=== PATIENT | female | born 1945 | race African-American/Black ===

== ENCOUNTER 2016-09-17 23:19 | Inpatient (IN) | payer MEDICARE, OTHER ==
--- NOTE | ~2016-09-17 | CN ---
Consultation Report [facility] [address] [place]. [address] NAME: MELANIE BOWLING : 43 STATUS : ADM IN [facility]#: [id number] AGE: 71 ADM/REG DATE : 09/18/16 MR#: [id number] REPORT SERV DATE: 09/19/16 DICTATED BY: ERIBERTO DIALLO JR. DATE: 09/19/16 REPORT STATUS : Draft TRANSCRIBED BY: MODKelvin DATE: 09/19/16 CONSULT DATE OF CONSULTATION: 09/19/2016 INDICATIONS FOR REFERRAL: Abnormal telemetry, shortness of breath, and hypoxic respiratory failure. HISTORY OF PRESENT ILLNESS: Melanie is a 71-year-old female, who is followed by Dr. Rivas. She has not seen him over a year per her report. She has distant coronary stenting. She felt poorly beginning at the beginning of August and has had progressive shortness of breath since that time. She presented yesterday with hypoxic respiratory failure with an oxygen saturation of 58 and even low-grade temperatures of 100.9. She states increasing wheezing and marked shortness of breath that have been progressive over a 4-week time. She denies precordial chest pain. On telemetry, she had aberrant irregular heart rhythm, more concerning for paroxysmal atrial fibrillation than ventricular tachycardia. PAST MEDICAL HISTORY: Includes end-stage renal disease on dialysis, coronary artery disease status post distant stenting, insulin-requiring diabetes, hypertension, mixed hyperlipidemia, prior TIA, osteoarthritis with spinal stenosis, morbid obesity, and a history of chronic diastolic heart failure. ALLERGIES: PLAVIX, ALBUTEROL IS NOT TOLERATED. CURRENT MEDICATIONS: Please see the MAR which was reviewed. SOCIAL HISTORY: The patient does not smoke, drink, or use recreational drugs. FAMILY HISTORY: Negative for premature vascular events. REVIEW OF SYSTEMS: Malaise, fatigue, low-grade subjective fevers. She denies bleeding diathesis. She denies changes in bowel or bladder habits. The remainder as in HPI or negative. PHYSICAL EXAMINATION: VITAL SIGNS: Blood pressure is 173/74, heart rate 84, and respirations 16 to 18. GENERAL: A morbidly obese female who is in no acute distress. HEENT: Anicteric, no scleral injection, no oral lesions. NECK: No JVD, supple, no bruits. LUNGS: Scattered rhonchi and wheezes. CARDIOVASCULAR: Regular rate and rhythm with distant heart sounds. ABDOMEN: Soft, nontender. Normoactive bowel sounds, no hepatosplenomegaly. EXTREMITIES: No clubbing, cyanosis or edema. Consultation Report [facility] [address] [place] [address] NAME: MELANIE BOWLING : 43 STATUS : ADM IN PAT#: [id number] AGE: 71 ADM/REG DATE : 09/18/16 MR#: [id number] REPORT SERV DATE: 09/19/16 DICTATED BY: ERIBERTO DIALLO JR. DATE: 09/19/16 REPORT STATUS : Draft TRANSCRIBED BY: LARS DATE: 09/19/16 SKIN: No visible rashes. NEURO/PSY: Normal affect, alert and oriented x 3. EKG: EKG reveals sinus rhythm with a heart rate of 69. No significant ST change. LABORATORY DATA: Troponin 0.04. Creatinine 3.97, potassium is 4. Hematocrit 33, white count 7.8. MEDICAL DECISION MAKIN. Abnormal heart rhythm. This appears more consistent with atrial fibrillation with aberrancy than ventricular tachycardia. We will continue telemetry observation and check echocardiography. 2. Coronary artery disease. The patient is stable without active angina. There is no evidence of ACS. 3. Chronic diastolic heart failure. This could be contributing to her shortness of breath and hypoxia. We will continue to titrate medications for blood pressure control. If systolic function remains preserved, consideration towards changing metoprolol to long- acting diltiazem or verapamil. We will continue to follow along with you. Further recommendations to follow. RADHAMES/LARS Eriberto Diallo Jr., M.D. / [id number] CC: MD Jocelynn Whipple M.D. Mandeep Grewal, M.D.
--- NOTE | ~2016-09-17 | HP ---
History And Physical [place] [address] [place]. [address] NAME: RANDALL DAWSON : 43 STATUS : ADM IN [facility]#: [id number] AGE: 71 ADM/REG DATE : 09/18/16 MR#: [id number] REPORT SERV DATE: 09/18/16 DICTATED BY: DATE: REPORT STATUS : Draft TRANSCRIBED BY: MODL DATE: 09/18/16 DATE OF ADMISSION: 09/18/2016 CHIEF COMPLAINT: Shortness of breath. HISTORY OF PRESENT ILLNESS: Ms Dawson is a 71-year-old, white female, who dialyzes at [address] [place] [address] Wednesday, Wednesday, and Wednesday. She states that she has been getting progressively more short of breath over the last two days. She states that prior to presentation, denied any fevers or chills. States that yesterday evening, she tried to take an albuterol, it made her jittery, more short of breath, therefore presented to the emergency department. In the emergency department, she was found to have a temperature up to 100.9, white blood cell count normal, chest x-ray is read as negative, she may have some edema on the chest x-ray. ABG; she was found to have significant hypoxia with pO2 of 58, and given all this, she was admitted for further evaluation and treatment. PAST MEDICAL HISTORY: End-stage renal disease, coronary artery disease, diabetes, showed normal ejection fraction in 11/2015, hypertension, hyperlipidemia, TIA, osteoarthritis, spinal stenosis, morbid obesity, anemia, history of diastolic heart failure. SOCIAL HISTORY: She is , lives with her . No tobacco, alcohol, or illicit drug use. FAMILY MEDICAL HISTORY: Positive for sister and a nephew with end-stage renal disease. ALLERGIES: PLAVIX. ALBUTEROL IS LISTED BUT IT IS NOT AN ALLERGY; SHE DOES HAVE SOME SIDE EFFECT OF JITTERINESS. MEDICATIONS: Acetaminophen, albuterol, atorvastatin, furosemide, hydralazine, Levemir, metoprolol, and multivitamins. REVIEW OF SYSTEMS: 12-point review of systems was obtained, negative with the exception of that in HPI. PHYSICAL EXAMINATION: VITAL SIGNS: Temp 97.7, blood pressure 177/78, pulse 79, respiratory rate 18, O2 saturation 99% on 2 L. GENERAL: This is a pleasant, cooperative, overweight black female. She is awake, alert, and oriented, in no acute distress. Answers questions appropriately. HEENT: Normocephalic and atraumatic. Conjunctivae clear. Sclerae anicteric. Pupils are equal and round. Oral mucosa is moist. LUNGS: Respirations are even and unlabored breath sounds. Clear to auscultation. NECK: Neck veins flat. No lymphadenopathy. CARDIOVASCULAR: Heart rate is regular. She does have a systolic murmur 3/6. No rub or gallop. ABDOMEN: Obese, soft, and nontender. Bowel sounds active. No masses. No hepatosplenomegaly. No bruits. No CVA tenderness. History And Physical [address] [place]. [address] NAME: RANDALL DAWSON : 43 STATUS : ADM IN [facility]#: [id number] AGE: 71 ADM/REG DATE : 09/18/16 MR#: [id number] REPORT SERV DATE: 09/18/16 DICTATED BY: DATE: REPORT STATUS : Draft TRANSCRIBED BY: LARS DATE: 09/18/16 BACK: Within normal limits. EXTREMITIES: With 1+ edema. No cyanosis or clubbing. SKIN: Warm, dry, and intact. No unusual rashes or skin lesions. NEUROLOGIC: No focal deficits. Mood and affect, pleasant and appropriate. PERTINENT LABS AND X-RAYS: Chest x-ray is read as negative, however, and she has some edema versus some perihilar infiltrates on my read. Sodium 145, potassium 3.8, chloride 106, CO2 of 27, BUN of 24, creatinine of 3.5, calcium 8.5, albumin of 3.1. LFTs are unremarkable. Flu screen is negative. BNP of 462. Lactate was normal 1.3. WBCs 9.4, H and H 10 and 34, and platelets 227,000. IMPRESSION: 1. Shortness of breath and hypoxia. 2. Acute bronchitis versus may be possible pneumonia. 3. End-stage renal disease. 4. Hypertension. 5. Diabetes. 6. Fever. PLAN: Admit. Nebulizer treatments, antibiotics. Dialysis today, we will challenge her weight just prove that she has had some edema there. Usual medicines as appropriate. Sliding scale insulin as his blood sugars elevated. She has one dose of Solu-Medrol in the emergency department. Further orders and recommendations pending clinical course. JEVON/LARS MALA Knox / [id number] CC: MD Jocelynn Whipple M.D.
--- NOTE | ~2016-09-17 | DS ---
Discharge Summary [facility] [address] [place]. [address] NAME: RANDALL BOWLING : 43 STATUS : DIS IN PAT#: [id number] AGE: 71 ADM/REG DATE : 09/18/16 MR#: [id number] REPORT SERV DATE: 10/03/16 DICTATED BY: JULIANNA ROTHMAN JR DATE: 10/02/16 REPORT STATUS : Draft TRANSCRIBED BY: LARS DATE: 10/02/16 Data Collection from hospitalization DISCHARGE DIAGNOSES: 1. Dyspnea. 2. Fluid overload secondary to chronic kidney disease/end-stage renal disease. 3. Hypertension-uncontrolled. 4. Bronchitis. 5. Insulin-dependent diabetes mellitus. 6. End-stage renal disease. 7. Hyperlipidemia. 8. Morbid obesity. 9. Osteoarthritis. 10.Anemia. 11.History of diastolic heart failure. CONSULTATION: Jose Alberto Diallo M.D. PROCEDURES PERFORMED: None. DISCHARGE MEDICATIONS: Tylenol 650 mg every morning as instructed, Exforge one tablet daily, Lipitor 40 mg at bedtime, Levemir FlexPen 40 units subcutaneously every morning and 35 units subcutaneously at bedtime, Lopressor 50 mg twice a day, multivitamins with minerals one tablet every morning, Augmentin as directed. She was instructed not to continue Lasix, NovoLog sliding scale, albuterol, hydralazine, or [id number] RBC vitamin. CONDITION AT DISCHARGE: Stable. DISPOSITION: The patient was discharged home on a low-cholesterol, 1800-calorie diabetic diet with no concentrated carbohydrates and activities as instructed. She would follow up with Dr. Markie Rivas as scheduled. She would follow up at [facility], 09/28/2016. HOSPITAL COURSE: This is a 71-year-old female, who dialyzes at [facility] on Mondays, Wednesdays, and Fridays. The patient said that she had become more short of breath over the last two days prior to admission. She said that prior to presentation, she denied any fevers or chills. She said that on the evening prior to this admission, she tried to take an albuterol, but it made her jittery and more short of breath and she therefore presented to the emergency department. In the emergency department, she was found to have a temperature of 100.9. White blood cell count was normal. Chest x-ray was read as negative. It was felt that she may have some edema on chest x-ray. She was found to have significant hypoxia with pO2 of 58. She was admitted to the hospital for further evaluation and treatment. Upon admission, nebulizer treatments and antibiotics were going to be provided. Dialysis therapy was going to be performed. medications were continued. Sliding scale insulin was started. The following day, she was seen by Dr. Noriega regarding abnormal telemetry, shortness of breath, and hypoxic respiratory failure. On telemetry, she had aberrant irregular heart rhythm, more concerning for paroxysmal atrial Discharge Summary [place] [id number] [facility] [address] [facility] [address] NAME: RANDALL BOWLING : 43 STATUS : DIS IN PAT#: [id number] AGE: 71 ADM/REG DATE : 09/18/16 MR#: [id number] REPORT SERV DATE: 10/03/16 DICTATED BY: JULIANNA ROTHMAN JR DATE: 10/02/16 REPORT STATUS : Draft TRANSCRIBED BY: LARS DATE: 10/02/16 fibrillation than ventricular tachycardia. Her abnormal heart rhythm appeared more consistent with atrial fibrillation with aberrancies in ventricular tachycardia. We would continue telemetry observation and check echocardiography. There was no evidence of acute coronary syndrome. It was felt that chronic diastolic heart failure could be contributing to her shortness of breath and hypoxia. We would continue to titrate medications for blood pressure control. If systolic function remains preserved, consideration towards changing metoprolol to long-acting diltiazem or verapamil would be performed. Echocardiogram was performed. On the , she had some shortness of breath earlier that morning. Ejection fraction was 55%. Chest x-ray was going to be rechecked. She still had shortness of breath with audible wheezing. She had no chest pain. There was a report of paroxysmal atrial fibrillation earlier. On 09/21/2016, her blood pressure was not controlled. She was felt to have volume overload. She had dull breath sounds. She remained dyspneic. She does have mild aortic stenosis and mild left ventricular diastolic dysfunction. Next day, she said she felt less short of breath. She was coughing up phlegm. She had no chest pain. Creatinine level was 6.26. She had not had a myocardial infarction by enzymes. There was no evidence of atrial fibrillation by any EKGs or telemetry at this time. We would consider adding back beta cristina for blood pressure control. Levaquin was continued. On 09/23/2016, hemodialysis therapy was performed. Blood glucose levels were stable. Valsartan was increased. Levemir was stopped. Diovan had been increased. Her cough was improving. Discharge planning was performed. Blood pressure control improved. On 09/25/2016, discharge instructions were given. Due to her improved and stable condition, she was discharged home with the above-stated instructions. Information collected by: Yasmin Howe I submit the above information as my discharge summary. TG/MODL Julianna Rothman Jr, M.D. / [id number] CC: MD Jocelynn Whipple M.D. Van Stephen Monroe Jr., M.D.
[~2016-09-17 23:19] MED LIST: ACET500CAP PO; AMOXIL875 PO; APRES50 PO; ASAB PO; DYAZIDE1 CAP PO; GLUCPH PO; HYGROTON 25 MG25 MG OR; L40 PO; L80 PO; LEVEMIR SC; LIPITOR20 PO; LISINOPRIL40 MG PO; LOP50 PO; MAX25 PO; MVI PO; NORV10 PO; NOVOLOG SC; NOVOLOGMIX SC; PROBIOTIC; SPIRO25 PO; TICLID 250 MG250 MG OR; VITAMIN D31000 UNIT PO
[2016-09-18 01:23] LABS: BE (BASE EXCESS) 2.2 MEQ/L (0 +/- 2.5); CARBOXYHEMOGLOBIN 1.4 % (0-3); HCO3 (ACTUAL BICARBONATE) 25.2 MEQ/L (23-27); HEMOBLOGIN CONTENT 11.4 G/DL (12-16); INSTRUMENT SERIAL # 8087; METHEMOGLOBIN 0.1 % (0-3); O2 CONTENT 14.1 VOL% (18-24); OPERATOR ID 17589; PCO2 (CO2 TENSION) 33 MMHG (35-45); PO2 (O2 TENSION) 58 MMHG (79-93); SAMPLE Arterial
[2016-09-18 01:24] LABS: ALLENS TEST Pos
[2016-09-18 03:24] LABS: BASOPHILS 0.1 %; BASOPHILS ABSOLUTE 0.01 10/3/uL (0.0-0.16); EOSINOPHILS ABSOLUTE 0.09 10/3/uL (0.0-0.53); ER CBC TAT 0 Hrs 07 Mins; IMMATURE GRANULOCYTES 0.2 %; IMMATURE GRANULOCYTES ABSOLUTE 0.02 10/3/uL (0.0-0.11); LYMPHOCYTES 10.6 %; MEAN CORPUS HGB CONC 31.7 g/dL (32.0-36.0); MEAN CORPUSCULAR HEMOGLOB 30.2 pg (26.0-34.0); MEAN PLATELET VOLUME 10.3 fL (9.2-13.0); MONOCYTES 3.8 %; MONOCYTES ABSOLUTE 0.36 10/3/uL (0.21-1.20); NEUTROPHILS 84.3 %; NEUTROPHILS ABSOLUTE 7.96 10/3/uL (2.02-8.40); PLATELET COUNT 227 10/3/uL (150-400); RBC DISTRIBUTION WIDTH 17.8 % (12.0-16.0); WHITE BLOOD CELLS 9.4 10/3/uL (4.5-10.5)
[2016-09-18 03:29] LABS: HEMATOCRIT 34.1 % (36.0-48.0); HEMOGLOBIN 10.8 g/dL (12.0-16.0); MANUAL DIFF NO %; MEAN CORPUSCULAR VOLUME 95.3 fL (80-100); RED CELL COUNT 3.58 10/6/uL (4.0-5.6)
[2016-09-18 03:50] LABS: LACTATE 1.3 MMOL/L (0.3-2.4)
[2016-09-18 04:46] LABS: INFLUENZA A SCREEN NEGATIVE (NEGATIVE); INFLUENZA B SCREEN NEGATIVE (NEGATIVE)
[2016-09-18 04:57] LABS: A/G RATIO 0.7 (0.7-1.9); ALBUMIN 3.1 G/DL (3.5-5.0); ALKALINE PHOSPHATASE 108 U/L (45-117); BUN (BLOOD UREA NITROGEN) 24 MG/DL (6-23); CALCIUM, SERUM 8.5 MG/DL (8.5-10.4); CHLORIDE, SERUM 106 MMOL/L (96-112); CO2 (CARBON DIOXIDE) 27 MMOL/L (24-34); CREATININE 4.55 MG/DL (0.55-1.02); GFR AFRICAN AMERICAN 10 ML/MIN (>=60); GFR NON AFRICAN AMERICAN 9 ML/MIN (>=60); GLOBULIN 4.2 G/DL (2.5-4.1); GLUCOSE, SERUM 217 MG/DL (60-99); POTASSIUM, SERUM 3.8 MMOL/L (3.5-5.3); SGOT(AST) 13 U/L (5-40); SGPT(ALT) 15 U/L (5-65); SODIUM, SERUM 145 MMOL/L (135-148); TOTAL BILIRUBIN 0.6 MG/DL (0-1.2); TOTAL PROTEIN 7.3 G/DL (6.0-8.5)
[2016-09-18] MEDS ORDERED: LOP50 PO (12:10)
[2016-09-18] MEDS ORDERED: APRES50 PO (12:11)
[2016-09-18] MEDS ORDERED: L80 PO (12:11)
[2016-09-18] MEDS ORDERED: [UNRECOGNIZED DRUG - OTHER] PO (12:12)
[2016-09-18] MEDS ORDERED: LIPITOR40 PO (12:12)
[2016-09-18] MEDS ORDERED: LEVEMFLXPN SC ×2 (12:12→12:13)
[2016-09-18] MEDS ORDERED: NOVOPEN SC (12:13)
[2016-09-18] MEDS ORDERED: 8 HOUR650 MG PO (12:13)
[2016-09-18] MEDS ORDERED: MULTIVIT/MIN PO (12:14)
[2016-09-18] MEDS ORDERED: DIALYSIS IV (12:14)
[2016-09-18] MEDS ORDERED: VENTOLIN HFA INH (12:15)
[2016-09-19 07:38] LABS: BASOPHILS 0.1 %; BASOPHILS ABSOLUTE 0.01 10/3/uL (0.0-0.16); EOSINOPHILS 0.9 %; EOSINOPHILS ABSOLUTE 0.07 10/3/uL (0.0-0.53); HEMATOCRIT 33.2 % (36.0-48.0); HEMOGLOBIN 10.6 g/dL (12.0-16.0); IMMATURE GRANULOCYTES 0.3 %; IMMATURE GRANULOCYTES ABSOLUTE 0.02 10/3/uL (0.0-0.11); LYMPHOCYTES 16.3 %; LYMPHOCYTES ABSOLUTE 1.27 10/3/uL (0.67-4.30); MEAN CORPUS HGB CONC 31.9 g/dL (32.0-36.0); MEAN CORPUSCULAR HEMOGLOB 30.4 pg (26.0-34.0); MEAN CORPUSCULAR VOLUME 95.1 fL (80-100); MEAN PLATELET VOLUME 9.4 fL (9.2-13.0); MONOCYTES 12.5 %; MONOCYTES ABSOLUTE 0.97 10/3/uL (0.21-1.20); NEUTROPHILS 69.9 %; NEUTROPHILS ABSOLUTE 5.45 10/3/uL (2.02-8.40); PLATELET COUNT 198 10/3/uL (150-400); RBC DISTRIBUTION WIDTH 17.8 % (12.0-16.0); RED CELL COUNT 3.49 10/6/uL (4.0-5.6); WHITE BLOOD CELLS 7.8 10/3/uL (4.5-10.5)
[2016-09-19 07:41] LABS: MANUAL DIFF NO %
[2016-09-19 07:52] LABS: ALBUMIN 2.8 G/DL (3.5-5.0); CALCIUM, SERUM 8.1 MG/DL (8.5-10.4); CHLORIDE, SERUM 104 MMOL/L (96-112); CO2 (CARBON DIOXIDE) 27 MMOL/L (24-34); SODIUM, SERUM 141 MMOL/L (135-148)
[2016-09-19 08:01] LABS: BUN (BLOOD UREA NITROGEN) 31 MG/DL (6-23); CREATININE 3.97 MG/DL (0.55-1.02); GFR AFRICAN AMERICAN 12 ML/MIN (>=60); GFR NON AFRICAN AMERICAN 11 ML/MIN (>=60); GLUCOSE, SERUM 125 MG/DL (60-99); TROPONIN I 0.04 NG/ML (<0.05)
[2016-09-20 05:21] LABS: BASOPHILS 0.1 %; BASOPHILS ABSOLUTE 0.01 10/3/uL (0.0-0.16); EOSINOPHILS 3.2 %; EOSINOPHILS ABSOLUTE 0.23 10/3/uL (0.0-0.53); HEMATOCRIT 33.3 % (36.0-48.0); HEMOGLOBIN 10.6 g/dL (12.0-16.0); IMMATURE GRANULOCYTES 0.4 %; IMMATURE GRANULOCYTES ABSOLUTE 0.03 10/3/uL (0.0-0.11); LYMPHOCYTES 18.6 %; LYMPHOCYTES ABSOLUTE 1.35 10/3/uL (0.67-4.30); MANUAL DIFF NO %; MEAN CORPUS HGB CONC 31.8 g/dL (32.0-36.0); MEAN CORPUSCULAR VOLUME 94.3 fL (80-100); MEAN PLATELET VOLUME 9.6 fL (9.2-13.0); MONOCYTES 8.6 %; MONOCYTES ABSOLUTE 0.62 10/3/uL (0.21-1.20); NEUTROPHILS 69.1 %; PLATELET COUNT 214 10/3/uL (150-400); RBC DISTRIBUTION WIDTH 18.1 % (12.0-16.0); RED CELL COUNT 3.53 10/6/uL (4.0-5.6); WHITE BLOOD CELLS 7.2 10/3/uL (4.5-10.5)
[2016-09-20 05:57] LABS: ALBUMIN 2.7 G/DL (3.5-5.0); CALCIUM, SERUM 8.3 MG/DL (8.5-10.4); CHLORIDE, SERUM 107 MMOL/L (96-112); CO2 (CARBON DIOXIDE) 24 MMOL/L (24-34); POTASSIUM, SERUM 4.3 MMOL/L (3.5-5.3); SODIUM, SERUM 143 MMOL/L (135-148)
[2016-09-20 06:01] LABS: BUN (BLOOD UREA NITROGEN) 41 MG/DL (6-23); CREATININE 5.06 MG/DL (0.55-1.02); GFR AFRICAN AMERICAN 9 ML/MIN (>=60); GFR NON AFRICAN AMERICAN 8 ML/MIN (>=60)
[2016-09-20 06:02] LABS: GLUCOSE, SERUM 74 MG/DL (60-99); PHOSPHORUS, SERUM 4.2 MG/DL (2.5-4.5); ULTRASENSITIVE TSH 0.458 MCIU/ML (0.358-3.740)
[2016-09-20 12:40] LABS: PROCALCITONIN 0.38 ng/mL (<0.5)
[2016-09-21 08:08] LABS: BASOPHILS 0.1 %; BASOPHILS ABSOLUTE 0.01 10/3/uL (0.0-0.16); EOSINOPHILS 2.3 %; EOSINOPHILS ABSOLUTE 0.17 10/3/uL (0.0-0.53); HEMATOCRIT 32.4 % (36.0-48.0); HEMOGLOBIN 10.6 g/dL (12.0-16.0); IMMATURE GRANULOCYTES 0.3 %; IMMATURE GRANULOCYTES ABSOLUTE 0.02 10/3/uL (0.0-0.11); LYMPHOCYTES 14.8 %; LYMPHOCYTES ABSOLUTE 1.08 10/3/uL (0.67-4.30); MEAN CORPUS HGB CONC 32.7 g/dL (32.0-36.0); MEAN CORPUSCULAR HEMOGLOB 29.9 pg (26.0-34.0); MEAN CORPUSCULAR VOLUME 91.5 fL (80-100); MEAN PLATELET VOLUME 9.8 fL (9.2-13.0); MONOCYTES 9.2 %; MONOCYTES ABSOLUTE 0.67 10/3/uL (0.21-1.20); NEUTROPHILS 73.3 %; NEUTROPHILS ABSOLUTE 5.33 10/3/uL (2.02-8.40); PLATELET COUNT 216 10/3/uL (150-400); RBC DISTRIBUTION WIDTH 17.7 % (12.0-16.0); RED CELL COUNT 3.54 10/6/uL (4.0-5.6); WHITE BLOOD CELLS 7.3 10/3/uL (4.5-10.5)
[2016-09-21 08:09] LABS: MANUAL DIFF NO %
[2016-09-21 08:16] LABS: ALBUMIN 2.8 G/DL (3.5-5.0); CALCIUM, SERUM 7.5 MG/DL (8.5-10.4); CHLORIDE, SERUM 103 MMOL/L (96-112); CO2 (CARBON DIOXIDE) 22 MMOL/L (24-34); PHOSPHORUS, SERUM 5.1 MG/DL (2.5-4.5); POTASSIUM, SERUM 4.1 MMOL/L (3.5-5.3); SODIUM, SERUM 140 MMOL/L (135-148)
[2016-09-21 08:17] LABS: BUN (BLOOD UREA NITROGEN) 57 MG/DL (6-23); CREATININE 6.26 MG/DL (0.55-1.02); GFR AFRICAN AMERICAN 7 ML/MIN (>=60); GFR NON AFRICAN AMERICAN 6 ML/MIN (>=60); GLUCOSE, SERUM 138 MG/DL (60-99)
[2016-09-23 07:49] LABS: BASOPHILS 0.3 %; BASOPHILS ABSOLUTE 0.02 10/3/uL (0.0-0.16); EOSINOPHILS 3.3 %; EOSINOPHILS ABSOLUTE 0.21 10/3/uL (0.0-0.53); HEMATOCRIT 31.6 % (36.0-48.0); HEMOGLOBIN 10.5 g/dL (12.0-16.0); IMMATURE GRANULOCYTES 0.3 %; IMMATURE GRANULOCYTES ABSOLUTE 0.02 10/3/uL (0.0-0.11); LYMPHOCYTES 27.1 %; LYMPHOCYTES ABSOLUTE 1.73 10/3/uL (0.67-4.30); MEAN CORPUS HGB CONC 33.2 g/dL (32.0-36.0); MEAN CORPUSCULAR HEMOGLOB 29.6 pg (26.0-34.0); MEAN PLATELET VOLUME 9.6 fL (9.2-13.0); MONOCYTES 8.8 %; MONOCYTES ABSOLUTE 0.56 10/3/uL (0.21-1.20); NEUTROPHILS 60.2 %; NEUTROPHILS ABSOLUTE 3.84 10/3/uL (2.02-8.40); PLATELET COUNT 194 10/3/uL (150-400); RBC DISTRIBUTION WIDTH 17.1 % (12.0-16.0); RED CELL COUNT 3.55 10/6/uL (4.0-5.6); WHITE BLOOD CELLS 6.4 10/3/uL (4.5-10.5)
[2016-09-23 07:50] LABS: MANUAL DIFF NO %
[2016-09-23 08:07] LABS: ALBUMIN 2.5 G/DL (3.5-5.0); BUN (BLOOD UREA NITROGEN) 57 MG/DL (6-23); CALCIUM, SERUM 7.6 MG/DL (8.5-10.4); CHLORIDE, SERUM 102 MMOL/L (96-112); CO2 (CARBON DIOXIDE) 25 MMOL/L (24-34); CREATININE 5.97 MG/DL (0.55-1.02); GFR AFRICAN AMERICAN 8 ML/MIN (>=60); GFR NON AFRICAN AMERICAN 6 ML/MIN (>=60); GLUCOSE, SERUM 97 MG/DL (60-99); PHOSPHORUS, SERUM 5.9 MG/DL (2.5-4.5); POTASSIUM, SERUM 4.2 MMOL/L (3.5-5.3); SODIUM, SERUM 139 MMOL/L (135-148)
[2016-09-24 05:31] LABS: BASOPHILS 0.9 %; BASOPHILS ABSOLUTE 0.06 10/3/uL (0.0-0.16); EOSINOPHILS 3.3 %; EOSINOPHILS ABSOLUTE 0.22 10/3/uL (0.0-0.53); HEMOGLOBIN 11.4 g/dL (12.0-16.0); IMMATURE GRANULOCYTES 0.3 %; IMMATURE GRANULOCYTES ABSOLUTE 0.02 10/3/uL (0.0-0.11); LYMPHOCYTES 32.2 %; LYMPHOCYTES ABSOLUTE 2.13 10/3/uL (0.67-4.30); MEAN CORPUS HGB CONC 32.4 g/dL (32.0-36.0); MEAN CORPUSCULAR HEMOGLOB 29.8 pg (26.0-34.0); MEAN PLATELET VOLUME 9.9 fL (9.2-13.0); MONOCYTES 6.5 %; MONOCYTES ABSOLUTE 0.43 10/3/uL (0.21-1.20); NEUTROPHILS 56.8 %; NEUTROPHILS ABSOLUTE 3.76 10/3/uL (2.02-8.40); PLATELET COUNT 209 10/3/uL (150-400); RED CELL COUNT 3.82 10/6/uL (4.0-5.6); WHITE BLOOD CELLS 6.6 10/3/uL (4.5-10.5)
[2016-09-24 05:32] LABS: HEMATOCRIT 35.2 % (36.0-48.0); MANUAL DIFF NO %; MEAN CORPUSCULAR VOLUME 92.1 fL (80-100)
[2016-09-24 06:05] LABS: ALBUMIN 2.7 G/DL (3.5-5.0); CALCIUM, SERUM 8.4 MG/DL (8.5-10.4); CHLORIDE, SERUM 102 MMOL/L (96-112); CO2 (CARBON DIOXIDE) 25 MMOL/L (24-34); POTASSIUM, SERUM 4.4 MMOL/L (3.5-5.3); SODIUM, SERUM 138 MMOL/L (135-148)
[2016-09-24 06:06] LABS: BUN (BLOOD UREA NITROGEN) 45 MG/DL (6-23); CREATININE 4.99 MG/DL (0.55-1.02); GFR AFRICAN AMERICAN 9 ML/MIN (>=60); GFR NON AFRICAN AMERICAN 8 ML/MIN (>=60); GLUCOSE, SERUM 128 MG/DL (60-99); PHOSPHORUS, SERUM 4.2 MG/DL (2.5-4.5)
[2016-09-25 08:15] LABS: BASOPHILS 0.1 %; BASOPHILS ABSOLUTE 0.01 10/3/uL (0.0-0.16); EOSINOPHILS 2.8 %; HEMATOCRIT 33.7 % (36.0-48.0); HEMOGLOBIN 11.3 g/dL (12.0-16.0); IMMATURE GRANULOCYTES 0.1 %; IMMATURE GRANULOCYTES ABSOLUTE 0.01 10/3/uL (0.0-0.11); LYMPHOCYTES 26.4 %; MEAN CORPUS HGB CONC 33.5 g/dL (32.0-36.0); MEAN CORPUSCULAR HEMOGLOB 30.3 pg (26.0-34.0); MEAN CORPUSCULAR VOLUME 90.3 fL (80-100); MEAN PLATELET VOLUME 9.7 fL (9.2-13.0); MONOCYTES 5.8 %; MONOCYTES ABSOLUTE 0.42 10/3/uL (0.21-1.20); NEUTROPHILS 64.8 %; NEUTROPHILS ABSOLUTE 4.66 10/3/uL (2.02-8.40); PLATELET COUNT 254 10/3/uL (150-400); RBC DISTRIBUTION WIDTH 16.5 % (12.0-16.0); RED CELL COUNT 3.73 10/6/uL (4.0-5.6); WHITE BLOOD CELLS 7.2 10/3/uL (4.5-10.5)
[2016-09-25 08:16] LABS: MANUAL DIFF NO %
[2016-09-25 08:29] LABS: ALBUMIN 2.7 G/DL (3.5-5.0); CALCIUM, SERUM 7.9 MG/DL (8.5-10.4); CHLORIDE, SERUM 99 MMOL/L (96-112); CO2 (CARBON DIOXIDE) 23 MMOL/L (24-34); GLUCOSE, SERUM 153 MG/DL (60-99); POTASSIUM, SERUM 4.4 MMOL/L (3.5-5.3); SODIUM, SERUM 135 MMOL/L (135-148)
[2016-09-25 08:33] LABS: BUN (BLOOD UREA NITROGEN) 66 MG/DL (6-23); CREATININE 6.36 MG/DL (0.55-1.02); GFR AFRICAN AMERICAN 7 ML/MIN (>=60); GFR NON AFRICAN AMERICAN 6 ML/MIN (>=60); PHOSPHORUS, SERUM 5.6 MG/DL (2.5-4.5)
[2016-09-25] MEDS ORDERED: AUGMENTIN (12:25)
[2016-09-25] MEDS ORDERED: EXFORGE1 TA3 PO (12:25)
== END 2016-09-25 14:58 | disposition home or self-care (01) | DRG 291 ==
LOC: ER 23:19 → 5SO 09-18 05:30
PROVIDERS: Internal Medicine Nephrology; Nurse Practitioner; Registered Nurse; Specialist
PROC: 5A1D60Z (ICD-10-PCS; principal; 2016-09-18)
DX: I13.2 Hypertensive heart and chronic kidney disease with heart failure and with stage 5 chronic kidney disease, or end stage renal disease (principal); N18.6 End stage renal disease; J96.91 Respiratory failure, unspecified with hypoxia; I47.2 Ventricular tachycardia; I50.33 Acute on chronic diastolic (congestive) heart failure; Z68.41 Body mass index [BMI] 40.0-44.9, adult; E11.22 Type 2 diabetes mellitus with diabetic chronic kidney disease; Z99.2 Dependence on renal dialysis; Z79.84 Long term (current) use of oral hypoglycemic drugs; I25.10 Atherosclerotic heart disease of native coronary artery without angina pectoris; Z88.8 Allergy status to other drugs, medicaments and biological substances; Z79.4 Long term (current) use of insulin; Z86.73 Personal history of transient ischemic attack (TIA), and cerebral infarction without residual deficits; E66.01 Morbid (severe) obesity due to excess calories; I48.0 Paroxysmal atrial fibrillation
CPT/HCPCS: 36600; 71010; 80053; 80069; 81001; 82805; 82962; 83605; 83735; 83880; 84145; 84443; 84484; 85025; 87040; 87804; 93005; 93306; 94640; 96374; 96375; 97161-GP; 99285; A9270-GY; G0257; G8978-CK-GP; G8979-CJ-GP; J2930; P9047